=== PATIENT | male | born 1945 | race Caucasian/White ===

== ENCOUNTER 2017-04-30 22:19 | Inpatient (IN) | payer OTHER, MEDICAID ==
--- NOTE | 2017-04-30 22:31 | EDPHY ---
H & P HPI/ROS: Chief Complaint: Facial injury HPI: 72-year-old developmentally delayed male resident of [facility] [place] was walking home from the grocery store when he says he gotten tangled in some tree branches and struck his face. Patient denies falling or hitting the ground. Does have a large hematoma on his forehead and some abrasions and laceration on his face his face and his nose was bleeding. Per reports from his residence he is on warfarin. Denies any headache. No neck pain. No numbness or weakness. No recent fevers or chills. ROS: 10 point Review of Systems is negative except as noted in the HPI. PMH: Developmental delay, hyperlipidemia Social History: No smoking, no alcohol, no recreational drug use Family History: non-contributory Physical Exam: Gen: Awake, Alert, Airway Intact HEENT: Head: He has a large 5 x 5 cm forehead hematoma. Eyes: PERRLA, EOMI Nose: Dried epistaxis bilateral nares the, no septal hematoma, he has a laceration on his right upper lip which is not through and through Mouth: Normal dentition, no gingival bleeding Airway patent Face: No deformity Neck: non-tender, no stepoff, Full ROM without pain Chest: non-tender, lungs CTA Heart: normal heart tones Abd: soft, non-tender, atraumatic Pelvis: non-tender, stable to AP and Lateral compression Back: atraumatic, no midline tenderness Ext: atramatic, full ROM Skin: no rash Neuro: CN II-XII intact, Strength 5/5 in all extremities, sensation intact in all extremities (Harpreet Goel) Constitutional: Initial Vital Signs Temperature (C) 36.4 C 04/30/17 22:38 Heart Rate 80 04/30/17 22:38 Respiratory Rate 16 04/30/17 22:38 Blood Pressure 142/80 H 04/30/17 22:38 O2 Sat (%) 93 04/30/17 22:38 O2 Delivery Mode Room Air Allergies/Adverse Reactions: latex Allergy (Verified 04/30/17 22:31) Penicillins Allergy (Verified 04/30/17 22:31) pollen extracts Allergy (Verified 04/30/17 22:31) strawberry Allergy (Verified 04/30/17 22:31) Home Medications: Medication Instructions Recorded Allopurinol 04/30/17 Aspirin 04/30/17 Atorvastatin Calcium 04/30/17 Colestipol HCl 04/30/17 FLUTICASONE PROPIONATE 04/30/17 FLUoxetine 04/30/17 Ferrous Sulfate 04/30/17 Finasteride 04/30/17 GLIPIZIDE 04/30/17 Meloxicam 04/30/17 Metformin HCl 04/30/17 Niacor 04/30/17 Ocuvite 04/30/17 Omeprazole 04/30/17 Oxybutynin 04/30/17 SUMAtriptan 04/30/17 TOPIRAMATE 04/30/17 Tamsulosin HCl 04/30/17 Vascepa 04/30/17 traZODone 04/30/17 Medical Decision Making Procedures: Procedure: Laceration repair. I was requested by Dr. Goel to perform wound closure I explained the indications, risks and benefits for both laceration repair and anesthetic administration. Verbal consent was obtained from the patient . The laceration on the upper lip was anesthetized using 0.5% bupivicaine with epinephrine . After anesthetic administered the patient was observed for a period of time and had no apparent adverse effects. The wound was cleaned, prepped, draped in normal sterile fashion and explored to its base. No foreign body seen, no foreign bodies palpated. There were no deep structures involved. This was a through and through laceration. This is a 2.5 cm laceration on the skin Wound is closed in multiple layers, the buccal mucosa closed with 2 simple interrupted 5 0 Vicryl suture, skin closed with 4 simple interrupted 6 0 Prolene suture The wound repair was complex. The procedure was performed by myself. Patient has been informed that scarring will occur, although efforts have been made to minimize this. (Raymundo Perry) ED Course/Re-evaluation: 72-year-old developmentally delayed male with facial trauma. Patient is reportedly on warfarin but this is not on his medical records from assisted living. He is awake and alert with slow to answer questions or to believes that his baseline. He does have evidence of facial trauma. He denies falls however given his developmental delay and he difficult to obtain history he might require imaging. Will send a PT PTT now to see if he truly is he anticoagulated on warfarin and reassess. Patient's INR is 1.09. I have discussed with his family was here now. Patient is not and never has been on warfarin or any other anticoagulation. Family is concerned about his story. They state that he has a bit of invagination states that he may have sustained his injury some other way. The patient is a little bit unclear on this. Given his developmental delay and the extent of his traumatic injuries including a large forehead hematoma came a epistaxis a laceration I am going to perform a CT scan of his brain to rule out intracranial injury. CT scan is positive for small left frontal subdural hematoma and a nasal fracture. I have discussed with Dr. Roberto Diego, neurosurgery. He agrees with plan to admit the patient to the ICU overnight. He will see the patient in morning with planned repeat CT. He does not want any anticonvulsants at this time. I have also discussed the case with Dr. Brett Cole, trauma surgery. He will admit to his service for further evaluation. (Harpreet Goel) - Data Points Laboratory Results: 04/30/17 04/30/17 04/30/17 22:24 22:24 22:24 WBC Pending RBC Pending Hgb Pending Hct Pending MCV Pending MCH Pending MCHC Pending RDW Pending Plt Count Pending MPV Pending Neut % (Auto) Pending Lymph % (Auto) Pending Vance % (Auto) Pending Eos % (Auto) Pending Baso % (Auto) Pending Nucleat RBC Rel Count Pending Absolute Neuts (auto) Pending Absolute Lymphs (auto) Pending Absolute Monos (auto) Pending Absolute Eos (auto) Pending Absolute Basos (auto) Pending Absolute Nucleated RBC Pending Immature Gran % Pending Immature Gran # Pending PT 13.9 SEC SEC (12.0-15.0) INR 1.08 (0.83-1.16) APTT 26.8 SEC SEC (23.0-38.0) Sodium Pending Potassium Pending Chloride Pending Carbon Dioxide Pending Anion Gap Pending BUN Pending Creatinine Pending Estimated GFR Pending Glucose Pending Calcium Pending Departure - Departure Disposition: [facility] Inpatient Acute Clinical Impression: Lip laceration, Traumatic hematoma of forehead, Subdural hematoma, Nasal fracture Condition: Good
[2017-04-30 22:46] LABS: INR 1.08 (0.83-1.16); PROTIME(PATIENT) 13.9 SEC (12.0-15.0)
[2017-04-30 22:47] LABS: APTT 26.8 SEC (23.0-38.0)
[2017-04-30 23:45] LABS: ADD MORPH? NO; ADD SCAN? YES; ATYPICAL LYMPHOCYTE FLAG 0 (0-99); FRAGMENT RBC FLAG 0 (0-99); HEMATOCRIT 46.7 % (40.0-51.0); HEMOGLOBIN 15.9 g/dL (13.7-17.5); LEFT SHIFT FLG 0 (0-99); LIPEMIA HEMOLYSIS FLAG 90 (0-99); MEAN CELL HEMOGLOBIN 31.8 pg (27.9-34.1); MEAN CELL VOLUME 93.4 fL (81.5-99.8); MEAN PLATELET VOLUME 10.6 fL (8.7-11.7); PLATELET CLUMPS FLAG 10 (0-99); PLATELET COUNT 127 10^3/uL (150-400); RED CELL DISTRIBUTION WIDTH 13.3 % (11.5-15.2)
[2017-04-30 23:51] LABS: ANION GAP 13 mEq/L (8-16); CALCIUM 9.5 mg/dL (8.5-10.4); CARBON DIOXIDE 24 mEq/l (22-31); CHLORIDE 99 mEq/L (97-110); CREATININE 1.2 mg/dL (0.7-1.3); GLOMERULAR FILTRATION RATE 59; GLUCOSE 102 mg/dL (70-100); POTASSIUM 3.6 mEq/L (3.5-5.2); SODIUM 136 mEq/L (134-144)
[2017-05-01] MEDS ORDERED: ONDANSETRON 4 MG/2 ML VIAL IVP PRN (00:08)
[2017-05-01] MEDS ORDERED: NS 1,000 ML IV SCH (00:15)
[2017-05-01] MEDS ORDERED: ACETAMINOPHEN 160 MG/5 ML UDCUP PO ONE (00:24)
[2017-05-01] MEDS ORDERED: ACETAMINOPHEN 325 MG TAB ONE (00:26)
[2017-05-01] MEDS ORDERED: ACETAMINOPHEN 325 MG TAB PO ONE (00:36)
[2017-05-01 02:38] LABS: ADD DIFF? YES; SCAN POSITIVE
[2017-05-01 02:43] LABS: PLATELET ESTIMATE ADEQUATE (ADEQ)
[2017-05-01 04:46] LABS: ANION GAP 12 mEq/L (8-16); CARBON DIOXIDE 24 mEq/l (22-31); CHLORIDE 107 mEq/L (97-110); GLOMERULAR FILTRATION RATE > 60; GLUCOSE 110 mg/dL (70-100); POTASSIUM 3.4 mEq/L (3.5-5.2); SODIUM 143 mEq/L (134-144)
[2017-05-01 06:10] LABS: MAGNESIUM 1.4 mg/dL (1.6-2.3)
[2017-05-01] MEDS ORDERED: PROTOCOL POTASSIUM 1 DOSE MISC PRN (06:45)
[2017-05-01] MEDS ORDERED: PROTOCOL MAGNESIUM 1 DOSE IV PRN (06:45)
[2017-05-01] MEDS ORDERED: POTASSIUM CL 10 MEQ TAB PO ONE (06:48)
[2017-05-01] MEDS ORDERED: MAGNESIUM SULF 2 GM/WATER 50 ML IV ONE (07:50)
--- NOTE | 2017-05-01 07:54 | TRAUMAPN ---
Assessment/Plan: 72yo s/p man vs tree c small SDH, facial lac and nasal fx Tertiary exam Neuro: Alert and oriented, nonfocal. Repeat CT scan this morning to my read looks about the same neurosurgery following. But if they are okay, will advance diet transfer floor. Starting Keppra Pulm: Stable on room air CV: Hemodynamically stable Abdomen: Soft nondistended nontender Renal: Voiding Heme: Stable Id: Afebrile Ortho: Nasal bone fracture non operative. Dispo: Stable from subdural standpoint, advance diet cognitive eval discuss discharge planning Subjective: A little groggy but denies any new complaints. Objective: Vital Signs Temp Pulse Resp BP Pulse Ox 36.7 C 66 15 144/77 H 98 05/01/17 01:50 05/01/17 07:38 05/01/17 07:38 05/01/17 07:38 05/01/17 07:38 Laboratory Results 05/01/17 04:10 04/30/17 05/01/17 05/02/17 05:59 05:59 05:59 Intake Total 0 Output Total 750 Balance -750 PT 13.9 SEC (12.0-15.0) 04/30/17 22:24 INR 1.08 (0.83-1.16) 04/30/17 22:24
[2017-05-01] MEDS: levETIRAcetam 500 MG TAB PO SCH ×2 (08:24→09:35)
--- NOTE | 2017-05-01 08:41 | SOAPPROG ---
SOAP Progress Note Assessment/Plan: Assessment: Rogelio is a 72 yo male who presents with a 3mm subdural hematoma to his left frontal convexity. Per Rogelio he was walking under a tree and fell and hit his head. He did not lose consciousness. Plan: Awaiting neurosurgery recommendations, last evening it was decided to be non-operable. Vitals stable over night, and Rogelio is mentating at baseline. Neuro is grossly intact. He does have a hx of GAIL and uses a CPAP but given nasal fx he will likely not be able to use his CPAP for 4-6 weeks as this heals. He was sating fine over night on supplemental O2. Hold ASA and fish oil but will restart other home meds. Likely home in a day or two if he remains stable. Appreciate trauma and neurosurgery input. Will also consult ENT for evaluation of nasal fx. 05/01/17 08:37 05/01/17 08:41 Subjective: Rogelio is up in the chair this morning. He denies any headache. Objective: Vital Signs Temp Pulse Resp BP Pulse Ox 98.1 F 66 15 144/77 H 98 05/01/17 01:50 05/01/17 07:38 05/01/17 07:38 05/01/17 07:38 05/01/17 07:38 Laboratory Results 05/01/17 04:10 04/30/17 05/01/17 05/02/17 05:59 05:59 05:59 Intake Total 0 Output Total 750 Balance -750 PT 13.9 SEC (12.0-15.0) 04/30/17 22:24 INR 1.08 (0.83-1.16) 04/30/17 22:24 Gen- AAOx3, vitals stable Head- normocephalic, multiple abrasions to forehead and nose - open to air EENT- PEERL, EOMI Resp- LCTAB, no rhonchi, rales, wheezing CV- S1S2, no murmurs, rubs, gallops Extremities- 2+ edema to bilat lower extremities Neuro- grossly intact Psych- mentating at baseline ICD10 Worksheet Patient Problems: Problems Problem Status Onset Lip laceration Acute Nasal fracture Acute Subdural hematoma Acute Traumatic hematoma of forehead Acute
[2017-05-01] MEDS ORDERED: FINASTERIDE 5 MG TAB PO SCH (08:45)
[2017-05-01] MEDS ORDERED: TOPIRAMATE 25 MG TAB PO SCH (08:45)
[2017-05-01] MEDS ORDERED: ALLOPURINOL 300 MG TAB PO SCH (08:45)
[2017-05-01] MEDS ORDERED: PANTOPRAZOLE SODIUM 40 MG TAB PO SCH ×2 (08:45→19:00)
[2017-05-01] MEDS ORDERED: FLUoxetine 20 MG CAP PO SCH (08:45)
[2017-05-01] MEDS ORDERED: TAMSULOSIN HCL 0.4 MG CAP PO SCH (08:45)
[2017-05-01] MEDS ORDERED: BACITRACIN ZINC 14.2 GM OINTTUBE TP SCH (09:00)
[2017-05-01] MEDS: NIACIN 500 MG TAB PO SCH ×2 (09:17→14:48)
--- NOTE | 2017-05-01 09:23 | ASMTCMCOM ---
CM Note CM Note Notes: 72 year old developmentally delayed male fell and admitted for SDH, nasal fx, lip laceration, forehead hematoma. Patient has a hx of GAIL and uses a c-pap, HLD. Will be unable to use his c-pap at this time. Nasal fx unoperative. Patient lives at [facility] and may need HC services on discharge. Date Signed: 05/01/2017 09:23 AM Electronically Signed By:Elisha Nobles LCSW
--- NOTE | 2017-05-01 09:34 | NEUSURGPN ---
Assessment/Plan: 72 yo male s/p injury with small subdural hematoma Small subdural hematoma stable on repeat head CT No surgical intervention PT/OT/Speech Stable from neurosurgery standpoint for the floor or to be discharged FU with Dr. Diego in 3 weeks with new head CT. Will sign off and follow peripherally. Please feel free to contact us with any further questions/concerns Discussed with Dr. Diego. Full consult noted dictated. Subjective: No headache, nausea, vomiting. Objective: Awake. Alert Facial expression symmetrical Facial lacerations and left periorbital ecchymosis Muscle strength full at 5/5 Sensation intact - Physician Patient Seen by : Johnathon Neurosurgery Physical Exam - Vitals, I&O, Labs I and O 04/30/17 05/01/17 05/02/17 05:59 05:59 05:59 Intake Total 0 Output Total 750 Balance -750 Weight 90.718 kg Intake: Oral (ml) 0 Output: Urine (ml) 750 Urinal 750 Vital Signs Temp Pulse Resp BP Pulse Ox 36.7 C 66 15 144/77 H 96 05/01/17 01:50 05/01/17 07:38 05/01/17 07:38 05/01/17 07:38 05/01/17 08:44 Laboratory Results 05/01/17 04:10 ICD10 Worksheet Patient Problems: Problems Problem Status Onset Lip laceration Acute Nasal fracture Acute Subdural hematoma Acute Traumatic hematoma of forehead Acute
--- NOTE | 2017-05-01 10:52 | GCON ---
[f rep st] CONSULTATION DATE OF CONSULTATION: 04/29/2017 REFERRING PHYSICIAN: Harpreet Goel MD REASON FOR EVALUATION: Trauma. HISTORY OF PRESENT ILLNESS: 72-year-old male with a significant history for developmental delay, who lives at [facility]. He was allegedly walking outside, unsupervised, heading toward [employer]. He ran into a tree and hit his head. He is unable to recall the events surrounding the injury. He was able to return home. He was brought to the emergency room for further treatment and evaluation after found by his caregivers with notable visible facial trauma. Upon my evaluation, he is without complaints. Specifically, he denies headaches other than pain at the site of a visible frontal hematoma. He denies visual changes. He denies double vision. He denies jaw pain. He denies neck pain. He denies chest pains or shortness of breath. He has no abdominal complaints. He denies extremity pain, numbness or tingling. He denies neck or back pain. PAST MEDICAL HISTORY: Developmental delay, hyperlipidemia, hypertension. PAST SURGICAL HISTORY: Perforated appendicitis, umbilical hernia repair. ALLERGIES: Latex, penicillin. SOCIAL HISTORY: No alcohol, no tobacco. He lives in an assisted living program. He is accompanied by his sister at bedside. FAMILY HISTORY: Noncontributory. REVIEW OF SYSTEMS: Negative 12 point review. PHYSICAL EXAMINATION: VITAL SIGNS: Temperature 36.4, blood pressure 140/80, pulse 80, respirations 16. GENERAL: The patient is alert, appropriate, comfortable. Primary survey: ABC intact. Secondary survey: Notable midline frontal hematoma without further scalp deformities. Pupils are equally round and react to light and accommodation. Extraocular muscles are intact. Superficial abrasion of his nasal bridge and face. Dentition normal. No mid face instability, step-offs or deformities. Cervical spine nontender. HEART: Regular without murmurs. LUNGS: Clear bilaterally. ABDOMEN: Soft, distended. Attenuated right lower quadrant perforated appendicitis incision. A supraumbilical transverse incision with areas of fat necrosis or incarcerated fat. Abdomen otherwise nontender. Pelvis nontender. EXTREMITIES: Normal bilateral upper and lower extremities. Cervical spine nontender. Thoracic and lumbar spines nontender. NEUROLOGIC: The patient is alert, appropriate, comfortable. HOME MEDICINES: Allopurinol, aspirin, atorvastatin, colestipol, fluticasone, fluoxetine, iron, finasteride, glipizide, meloxicam, metformin, Niacor, Ocuvite , omeprazole, oxybutynin, sumatriptan, topiramate, tamsulosin, Vascepa, trazodone. CT of the head: Images were directly reviewed on PACS, small left frontal subdural hematoma, measured to be approximately 3 mm, with a comminuted nasal bone fracture with overlying scalp hematoma. No other intracranial injury. No other facial bone fractures noted. IMPRESSION: 1. Status post fall. 2. Small subdural hematoma without neurologic compromise. 3. Nasal bone fracture. 4. History of developmental delay. PLAN: The patient will be admitted for serial neurologic exams. We will repeat head imaging studies in the morning. He will be evaluated by PT, OT, and speech therapies. Reassurance regarding nasal bone fracture - can follow- up with ENT as outpatient if desires. Care plan was reviewed with Dr. Diego via phone by Dr. Goel, emergency room physician palaeontologist. Care plan was directly reviewed with Dr. Goel as well. Nacho Macias was notified of patient 's admission. /[id number]/MODL MTDD
--- NOTE | 2017-05-01 15:29 | PDIAF ---
- Diagnosis Diagnosis: Facial trauma, subdural hematoma, nasal bone fx Code Status: Full Code - Medication Management Discharge Medications: Medications to Continue on Transfer Allopurinol [Allopurinol 300 MG (RX)] 300 mg PO DAILY@04/30/17 [Last Taken ] Aspirin [Aspirin 81mg (*)] 81 mg PO DAILY@04/30/17 [Last Taken 04/30/17] Atorvastatin Calcium [Lipitor 40 mg (*)] 80 mg PO DAILY@04/30/17 [Last Taken 04/30/17] C/E/Zn/Cu/OM3/DHA/EPA/LUT/ZEAX [Preservision Areds 2 Softgel] 1 each PO DAILY@ 04/30/17 [Last Taken 04/30/17] Colestipol HCl [Colestid (*)] 2 gm PO BID@,04/30/17 [Last Taken 04/30/17 19 :00] FLUoxetine [Prozac 20 MG (*)] 20 mg PO DAILY@04/30/17 [Last Taken 04/30/17] Finasteride [Proscar 5 MG (*)] 5 mg PO DAILY@04/30/17 [Last Taken 04/30/17] Fluticasone Nasal [Flonase Nasal [place]] 1 - 2 sprays NASAL DAILY@04/30/17 [ Last Taken 04/30/17] Icosapent Ethyl [Vascepa] 2 gm PO BID@,04/30/17 [Last Taken 04/30/17 19:00] Meloxicam [Mobic 15 mg] 15 mg PO DAILY@04/30/17 [Last Taken 04/30/17] Niacin [Niacin 500 mg (*)] 500 mg PO TID@,,04/30/17 [Last Taken 04/30/17 19:00] Omeprazole [Prilosec 20 mg] 20 mg PO BID@04/30/17 [Last Taken 04/30/17 19: 00] Oxybutynin Chloride Xl [Ditropan Xl 5mg (*)] 5 mg PO DAILY@04/30/17 [Last Taken 04/30/17] SUMAtriptan [Imitrex 50 MG (*)] 50 mg PO DAILY PRN 04/30/17 [Last Taken Unknown] Tamsulosin HCl [Flomax 0.4 MG (*)] 0.4 mg PO DAILY@04/30/17 [Last Taken 04/30] Topiramate [Topamax 25MG (*)] 25 mg PO BID@04/30/17 [Last Taken 04/30/17 19:00] glipiZIDE XL [Glucotrol Xl 2.5 mg (*)] 2.5 mg PO DAILY@04/30/17 [Last Taken 04/30/17] metFORMIN HCL [Metformin HCl ER] 500 mg PO BID@,04/30/17 [Last Taken 19:00] traZODone [traZODONE 50MG (*)] 50 mg PO DAILY@04/30/17 [Last Taken 04/30/17] Cholecalciferol Vit D3 [Vitamin D3 2000 units tab (OTC)] 2,000 units PO BID@05/01/17 [Last Taken 04/30/17 19:00] Docusate Sodium [Colace 100 MG (*)] 100 mg PO BID@05/01/17 [Last Taken 09/15 19:00] Herbals/Supplements -Info Only 1 ea PO DAILY@05/01/17 [Last Taken Unknown] Discharge Medications: Refer to the Discharge Home Medication list for PRN reason. - Orders Services needed: Home Care, Registered Nurse, Speech Language Pathologist Home Care Face to Face: I certify that this patient was under my care and that I had the required [id number] encounter meeting the encounter requirements on the discharge day. My findings support the fact that the patient is homebound as defined in Home Care Face to Face Continued: CMS Chapter 7 Medicare Benefits Manual 30.1.1 , The condition of the patient is such that there exists a normal inability to leave home and consequently, leaving home would require a considerable and taxing effort. Diet Recommendation: no restrictions on diet Diet Texture: Regular Texture Diet - Follow Up Care Current Providers and Referrals: Joe Hernandez MD [Primary Care Provider] - As per Instructions Leobardo Finley MD [Medical Doctor] - follow up in 10 days (Please see for your nasal fracture within 10 days of discharge) Jeri Diego MD [Medical Doctor] - (follow up in 3 weeks, will need repeat CT scan of your head at that time. Please contact his office to schedule )
--- NOTE | 2017-05-01 15:33 | PDDCSUM ---
Discharge Summary Discharge Summary: DISCHARGE SUMMARY Date of Admission April 30 Date of Discharge May 01 DISCHARGE DIAGNOSES -small subdural hematoma -nasal bone fracture -anterior head hematoma and lip laceration HOSPITAL COURSE The patient was admitted from the ED for the above injuries sustained after running into a tree. He had consultations by Neurosurgery and Otolaryngology who felt that his injuries were non operative. He had consultations by Physical and Occupational therapy as well as speech language pathology. He was subsequently discharged back to his care facility in stable condition on the afternoon of the . DISCHARGE MEDICATIONS All home medications were restarted, no new medications. DISPOSITION Back to [place] will have consultations from home nurse and SECRETARIAL STENOGRAPHER FOLLOW UP Follow up with Dr. Diego in [address] scan Follow up with Dr. Hernandez per your usual routine Follow up with Dr. Leobardo Finley in 10 days
[2017-05-01 15:52] VITALS: BP 131/77; PULSE 85; RESP 17; TEMP 98.4; O2SAT 95
--- NOTE | 2017-05-01 16:20 | ASMTCMCOM ---
CM Note CM Note Notes: Patient has been discharged back to [place] by the [facility] recommended HC- [facility]. Contacted [facility] [phone]; fax [phone] and faxed them patient orders. Also faxed patient orders, medication list and other records. Sister will be contacted to transport patient back home. I did not use [employer] for this transfer. Date Signed: 05/01/2017 04:19 PM Electronically Signed By:Elisha Nobles LCSW
[2017-05-01] MEDS ORDERED: traZODone 50 MG TAB PO SCH (17:00)
[2017-05-01] MEDS ORDERED: DOCUSATE SODIUM 100 MG CAP PO SCH (19:00)
[2017-05-01] MEDS ORDERED: NON-FORMULARY NEW DRUG (Omeprazole [Prilosec 20 Mg] 20 MG) PO SCH (19:00)
[2017-05-01] MEDS ORDERED: ATORVASTATIN CALCIUM 40 MG TAB PO SCH (19:00)
[2017-05-01] MEDS ORDERED: COLESTIPOL HCL 1 GM TAB PO SCH (19:00)
[2017-05-01] MEDS ORDERED: CHOLECALCIFEROL VIT D3 2,000 UNITS TAB/CAP PO SCH (19:00)
--- NOTE | 2017-05-01 21:21 | GCON ---
[f rep st] CONSULTATION DATE OF CONSULTATION: 05/01/2017 HISTORY OF PRESENT ILLNESS: The patient is a 72-year-old male who presented to the Emergency Departm ent following an injury. He is a developmentally delayed male resident at an assisted living home. The patient states he was walking outside and got tangled up into a tree with the branches. He denie s loss of consciousness. He was brought to the emergency room and evaluated. He was found to have f acial lacerations and left periorbital ecchymosis. Currently, he denies headache, nausea, vomiting. No seizures. No upper or lower extremity pain, numbness, tingling, or weakness. No loss of conscio usness. No speech or swallowing difficulties. No changes in vision. He denies taking any current b lood thinners, such as warfarin or aspirin. PAST MEDICAL HISTORY: Developmentally delayed, hyperlipidemia. ALLERGIES: Latex, penicillin, pollen extract, strawberry. MEDICATIONS: Glipizide, Flomax, Mobic, fluticasone, sumatriptan, Proscar, Prozac, allopurinol, niaci n, aspirin, vitamin D3, metformin, Topamax, Prilosec, Colace, trazodone, oxybutynin, atorvastatin. SOCIAL HISTORY: No smoking, alcohol, or recreational drug use. FAMILY HISTORY: No pertinent neurosurgical family history. REVIEW OF SYSTEMS: The patient denies headache, nausea, vomiting, fevers, chills. No upper or lower extremities symptoms. No seizures. PHYSICAL EXAM: GENERAL: The patient is seen and examined. Appears to be in no apparent distress. Mood and affect appropriate. Alert and oriented. VITAL SIGNS: Blood pressure 141/85, heart rate 74 , respiration is 15, breathing 96% on room air, temperature 36.8. Extraocular movements are intact. NEURO: Pupils equal and reactive. Facial expression is symmetrical. Tongue is midline with protru katey. Hearing is grossly intact. Speech is fluent without any dysarthria. Muscle strength is well preserved in his upper and lower extremities at a 5/5, and sensation is intact to light touch. LABORATORY DATA: Results: White count 14.19, hemoglobin 15.9, hematocrit 46.7, platelet count 127, PT 13.9, INR 1.08, PTT 26.8, sodium 143, potassium 3.4, chloride 107, bicarb 24, BUN 20, creatinine [address] head acute subdural hematoma measuring 3 mm along the left frontal convexity. Mildly comminuted n josué bone fracture. A moderately sized left frontal scalp hematoma. ASSESSMENT AND PLAN: In summary, the patient is a 72-year-old male, status post injury. He currentl y denies headache, nausea, or vomiting. He did not have a loss of consciousness that he recalls. He had a head CT completed demonstrating an acute subdural hematoma measuring 3 mm along the left front al convexity. Repeat head CT was stable. Recommend physical, occupational, and speech therapy to ev aluate the patient. He does not require any further imaging at this time unless he clinically declin es. We will plan on repeating head CT in 3 weeks as an outpatient. No surgical intervention is deem ed necessary. The patient was seen and examined by myself and Dr. Diego. The patient can follow up with Dr. Diego in 3 weeks with a new head CT. We will sign off and follow peripherally. Please co ntact us if there are any further questions or concerns. /[id number]/MODL
--- NOTE | 2017-05-03 16:47 | ASDISCHSUM ---
Discharge Information Plan Status:Assisted Living Medically Cleared to Leave:05/01/2017 Discharge Date:05/01/2017 05:31 PM CM D/C Disposition:Home Health Service ADT D/C Disposition:[id number] Projected Discharge Date:05/01/2017 05:00 PM Transportation at D/C:Family Discharge Delay Reason: Follow-Up Date:05/01/2017 05:00 PM Discharge Slot: Final Diagnosis:Fall: SDH, nasal fx, forehead hematoma Placement Information Patient Contact Information Contact Name:MOHAMUD Relationship:Sister Address:[address] [place] [address] City:[place] Alternate Phone: State/Zip Code:[place] [address] Email: Financial Information Financial Class: Primary Plan Desc:MEDICARE IP PART B ONLY Primary Plan Number:[id number] Secondary Plan Desc:MEDICA[place] Secondary Plan Number:[id number] Assessment Information [facility] CM Progress Note CM Note CM Note Notes: 72 year old developmentally delayed male fell and admitted for SDH, nasal fx, lip laceration, forehead hematoma. Patient has a hx of GAIL and uses a c-pap, HLD. Will be unable to use his c-pap at this time. Nasal fx unoperative. Patient lives at [facility] and may need HC services on discharge. Date Signed: 05/01/2017 09:23 AM Electronically Signed By:Elisha Nobles LCSW [facility] CM Progress Note CM Note CM Note Notes: Patient has been discharged back to [place] by the [facility]- . Contacted [facility] [phone]; fax [phone] and faxed them patient orders. Also faxed patient orders, medication list and other records. Sister will be contacted to transport patient back home. I did not use [employer] for this transfer. Date Signed: 05/01/2017 04:19 PM Electronically Signed By:Elisha Nobles LCSW Intervention Information
== END 2017-05-01 17:31 | disposition home health service (06) | DRG 87 ==
LOC: EDUNIT# → EDBD → OBSVTOIN 23:44 → F2N 05-01 01:37
PROVIDERS: ADMIT Surgery; ATTEND Surgery
PROC: 0CQ0XZZ Repair Upper Lip, External Approach (ICD-10-PCS; principal; 2017-04-30)
DX: S06.5X0A Traumatic subdural hemorrhage without loss of consciousness, initial encounter (principal); S01.511A Laceration without foreign body of lip, initial encounter; S02.2XXA Fracture of nasal bones, initial encounter for closed fracture; W22.09XA Striking against other stationary object, initial encounter; Y93.01 Activity, walking, marching and hiking; E78.5 Hyperlipidemia, unspecified; F81.9 Developmental disorder of scholastic skills, unspecified
CPT/HCPCS: 92523-GN; 97161-GP; 97165-GO; G0390; G8978-GP-CI; G8979-GP-CI; G8987-GO-CI; G8988-GO-CI; G8989-GO-CI; G9165-GN-CI; G9166-GN-CI

== ENCOUNTER → 2018-03-21 | Outpatient (CLI) | payer OTHER, MEDICAID | LOC: FIMAGING 10:44 | PROVIDERS: ATTEND Nurse Practitioner Family | DX: Z13.820 Encounter for screening for osteoporosis (principal); M81.0 Age-related osteoporosis without current pathological fracture ==